=== PATIENT | female | born 1995 | race Caucasian/White ===

== ENCOUNTER 2017-04-02 13:25 | Outpatient (CLI) | payer MEDICAID ==
--- NOTE | 2017-04-02 15:40 | ULT ---
OBSTETRICAL ULTRASOUND 04/02/17 INDICATION: Intrauterine gestation with no noted heart tones seen at the physician's office. TECHNIQUE: Singh scale, color doppler, vascular duplex with spectral analysis was performed. FINDINGS: The uterus measures 8.2 x 6.6 x 5.5 cm. Right ovary measures 3.1 x 2.2 x 1.8 cm. The left ovary francisco ures 2.6 x 2.5 x 1.5 cm. There is normal flow to both ovaries. There is a single intrauterine sac wi th a yolk sac and pole identified. Gestational age based on crown-rump length was 7 weeks and 6 days. The estimated gestational age based on mean sac diameter was 8 weeks and 2 days. The average gestational age by ultrasound is 8 weeks and 1 day with estimated due date of 11/11/17. This does co rrelate with the patient's clinical age of 8 weeks and 0 days. The yolk sac measures 7.4 mm which is enlarged. No subchorionic hemorrhage is evident. No free fluid is demonstrated. IMPRESSION: Intrauterine gestation with identified pole and yolk sac. The yolk sc is enlarged for gestatio nal age. No heart tones are demonstrated. Findings are suspicious for intrauterine demis e. Recommend continued clinical and sonographic followup. POS: [facility]
== END 2017-04-02 13:26 | disposition home or self-care (01) ==
LOC: SCSULT 13:25
PROVIDERS: ATTEND Nurse Practitioner
DX: Z34.90 Encounter for supervision of normal pregnancy, unspecified, unspecified trimester (principal); R10.2 Pelvic and perineal pain
CPT/HCPCS: 76856; 93976

== ENCOUNTER 2017-04-22 11:56 | Outpatient (CLI) | payer OTHER | END 2017-04-22 11:57 | disposition home or self-care (01) | LOC: LABBT 11:56 | PROVIDERS: ATTEND Obstetrics & Gynecology | DX: O02.1 Missed abortion (principal) ==

== ENCOUNTER 2017-04-23 08:05 | Day surgery (SDC) | payer OTHER ==
[2017-04-22 12:10] VITALS: BMI 19.2
--- NOTE | 2017-04-23 00:04 | HP ---
DATE OF ENCOUNTER: 04/22/2017 CHIEF COMPLAINT: Missed . HISTORY OF PRESENT ILLNESS: Patient is a 22-year-old G1, P0 female with an intrauterine a t approximately 10 weeks' gestation, diagnosed 3 weeks ago with a missed . Patient has atte mpted expectant management for several weeks and has now opted to move forward with other options an d we have discussed medical versus surgical management and patient has opted for a suction D\T\C. W janet discussed the risks of D\T\C including the risk of bleeding, infection, and damage to bowel or markell dder, blood vessels, or other organs, perforation of the uterus, negative impact on future fertility with the possibility of emergency surgery, blood transfusion, and hysterectomy. The patient has ex pressed understanding of these risks and has chosen to proceed. The patient denies any recent illne ss, fever, sexually transmitted infection, or other pelvic infection. PAST MEDICAL HISTORY: Negative. PAST SURGICAL HISTORY: She had surgery on her left arm. SOCIAL HISTORY: Denies drug, alcohol, or tobacco use. OBSTETRIC HISTORY: This is her first . ALLERGIES: No known drug allergies. REVIEW OF SYSTEMS: Per HPI. PHYSICAL EXAMINATION: VITAL SIGNS: Pulse of 93, respiratory rate of 18, weight of 130 pounds, height 5 feet 9 inches. GENERAL: She appears to be in no acute distress. She is alert and oriented, and cooperative, and p leasant to interact with. HEAD: Normocephalic, atraumatic. LUNGS: Clear to auscultation bilaterally. HEART: Regular rate and rhythm. ABDOMEN: Soft and nontender. ASSESSMENT AND PLAN: Patient is a 22-year-old female with approximately 7-week missed , who is now gone 3 weeks with expectant management without success. Patient has been counseled on her o ptions and has chosen to move forward with a suction D\T\C. The patient was provided an informed co nsent and has been counseled to not to eat or drink anything after midnight tonight with a plan for surgery tomorrow morning.
[2017-04-23] MEDS ORDERED: Midazolam HCl 2 mg/2 ml Vial ONE ×2 (09:17→09:40)
[2017-04-23] MEDS ORDERED: Fentanyl 100 MCG/2 ML VIAL ONE ×2 (09:40→11:13)
[2017-04-23] MEDS ORDERED: Lidocaine 1% PF 5 ML VIAL ONE (10:00)
[2017-04-23] MEDS ORDERED: Ketorolac Tromethamine 30 MG/ML VIAL ONE (10:00)
[2017-04-23] MEDS ORDERED: Ondansetron HCl/PF 4 MG/2 ML Vial ONE (10:00)
[2017-04-23] MEDS ORDERED: Propofol 200 MG/20 ML VIAL ONE (10:00)
[2017-04-23] MEDS ORDERED: Succinylcholine Chloride 20 MG/ML 10 ml SYRINGE FS ONE (10:00)
--- NOTE | 2017-04-23 12:16 | OP ---
DATE OF ENCOUNTER: 04/23/2017 PREOPERATIVE DIAGNOSIS: Missed , 7 weeks. POSTOPERATIVE DIAGNOSIS: Missed , 7 weeks. PROCEDURE PERFORMED: Suction dilation and curettage. SURGEON: Beau Dubose M.D. MANAGER WOUND: Griselda He PA-C ESTIMATED BLOOD LOSS: 200 mL. COMPLICATIONS: None. COUNTS: Correct. FINDINGS: Anteverted uterus. SPECIMENS: Products of conception to pathology. DESCRIPTION OF PROCEDURE: Ms. Darlin Palmer was taken to the operating room after obtaining inf ormed consent for a suction D\T\C due to missed AB. The patient attempted expectant management for 3 weeks without success and desired surgical intervention. She was placed under general anesthesia without difficulty and placed in dorsal lithotomy position in [facility]. She was prepared and draped in normal sterile fashion and attention was placed vaginally with the aid of an operativ e speculum. The cervix was identified and grasped by single tooth tenaculum on the anterior lip. T he cervical os was then dilated to accommodate an 8 curved curet. Once dilation was completed, the curet was inserted and gently placed to the fundus of the uterus. The suction was then engaged whic h previously had been tested to be a 40 mmHg and with 3 consecutive passes significant amount of tis alok was removed. A sharp curet was then introduced and the uterine cry was felt in all 4 quadrants. The suction curet was then passed one more time with very little return. A single-tooth tenaculum was then removed from the anterior lip of the cervix. Good hemostasis was noted both from the sanjiv culum site and the os. At this point, the procedure was completed. The patient was taken out of li thotomy position and taken to recovery room after extubation in stable condition.
[2017-04-23] MEDS ORDERED: HYDROcodone/Acetaminophen 5/325 mg Tablet ONE (13:21)
== END 2017-04-23 13:15 | disposition home or self-care (01) ==
LOC: SDC 08:05
PROVIDERS: ATTEND Obstetrics & Gynecology
PROC: 10A07ZZ Abortion of Products of Conception, Via Natural or Artificial Opening (ICD-10-PCS; principal; 2017-04-23)
DX: O02.1 Missed abortion (principal)
CPT/HCPCS: 88305; 96374; J1885; J2001; J2250; J2405; J2704; J3010; J7050

== ENCOUNTER 2017-10-22 15:01 | Emergency (ER) | payer BC, OTHER ==
[2017-10-22 15:38] LABS: #Basophils 0.1 thou/uL (0.0-0.2); #Eosinphils 0.1 thou/uL (0.0-0.7); #Lymphocytes 2.7 thou/uL (1.20-3.40); #Monocytes 0.6 thou/uL (0.11-0.59); %Basophils 0.7 % (0.0-1.0); %Eosinophils 1.5 % (0.0-10.0); %Lymphocytes 32.2 % (28.0-48.0); %Monocytes 6.7 % (0.0-4.0); %Neutrophils 58.9 % (31.0-61.0); Hemoglobin 14.3 g/dL (12.0-16.0); Mean Corpuscular HGB CONC 34.5 g/dL (32.0-36.0); Mean Corpuscular Hemoglobin 30.8 pg (25.0-35.0); Mean Corpuscular Volume 89.3 fl (77.0-87.0); Mean Platelet Volume 7.3 fL (7.4-10.4); Platelet Count 279 thou/uL (130-400); RBC Distribution Width 11.7 % (11.5-14.5); Red Blood Cell (RBC) Count 4.63 mill/uL (4.00-5.20); White Blood Cell (WBC) Count 8.5 thou/uL (4.8-10.8)
[2017-10-22 16:01] LABS: ALT (SGPT) 14 U/L (8-55); AST (SGOT) 17 U/L (5-34); Albumin 4.2 g/dL (3.5-5.0); Alkaline Phosphatase 59 U/L (40-150); Anion Gap 11 mmol/L (10-20); BUN (Urea Nitrogen) 9 mg/dL (7.0-18.7); Bilirubin, Total 0.7 mg/dL (0.2-1.2); Calc. Creatinine Clearance 0 mL/min (70-130); Calcium 9.4 mg/dL (7.8-10.44); Carbon Dioxide 26 mmol/L (22-29); Chloride 106 mmol/L (98-107); Estimated GFR-MDRD Greater than 90; Globulin 3.3 g/dL (2.4-3.5); Glucose 93 mg/dL (70-105); Potassium 4.2 mmol/L (3.5-5.1); Protein, Total 7.5 g/dL (6.0-8.3); Sodium 139 mmol/L (136-145)
[2017-10-22 16:30] LABS: BHCG - Serum Negative (NEGATIVE); Pregs Control Background? CLEAR/WHITE (CLR/WHITE); Pregs Control Bar Appear? YES (CONTROL BAR)
== END 2017-10-22 16:53 | disposition home or self-care (01) ==
LOC: ERS 15:01
DX: N94.6 Dysmenorrhea, unspecified (principal); F32.9 Major depressive disorder, single episode, unspecified
CPT/HCPCS: 36415; 80053; 84703; 85025; 99284